=== PATIENT | male | born 1960 ===

== ENCOUNTER 2019-05-28 10:24 | Emergency (ER) | payer BC ==
[2019-05-28 10:38] VITALS: BP 153/107
--- NOTE | 2019-05-28 10:45 | UC ---
Knee Pain HPI - HPI Summary HPI Summary: 59 yo with onset of left knee pain and swelling 2 weeks ago when he jumped down about 2 feet, although he was holding onto rebar at the time to decrease the impact. He had onset of swelling within a day, and began using a knee brace for support. Yesterday, he knelt to clean out a chimney,and worked on his knees for a bit, with significant increase in pain and swelling following that. He has been using ice every 2 hours to the knee for relief of swelling. No history of gout. - History of Current Complaint Chief Complaint: UCLowerExtremity Stated Complaint: SWOLLEN KNEE Time Seen by Provider: 05/28/19 10:44 Hx Obtained From: Patient Onset/Duration: Gradual Onset, Lasting Weeks Pain Intensity: 4 Character: Aching, Stiffness Aggravating Factor(s): Movement, Weight Bearing, Prolonged Standing, Stairs Alleviating Factor(s): Rest, Cold Associated Signs And Symptoms: Positive: Negative - Allergies/Home Medications Allergies/Adverse Reactions: Allergies Allergy/AdvReac Type Severity Reaction Status Date / Time No Known Allergies Allergy Verified 05/28/19 10:38 Home Medications: Home Medications Concentrated Tumeric 1 tab PO DAILY 05/28/19 [History] Magnesium Oxide [Magnesium] 250 mg PO DAILY 05/28/19 [History Confirmed 05/28/19 ] Tumeric/Black Pepper 4 tab PO DAILY 05/28/19 [History Confirmed 05/28/19] Ubidecarenone [Co Q-10] 200 mg PO DAILY 05/28/19 [History Confirmed 05/28/19] Vitamin E(Dl-Alpha Tocopherol) [Alpha-Tocopherol] 1 liq XX DAILY 05/28/19 [ History Confirmed 05/28/19] PMH/Surg Hx/FS Hx/Imm Hx - Additional Past Medical History Additional PMH: diffuse arthritis Cardiovascular History: Cardiac Disease, Hypertension - Surgical History Surgical History: Yes Surgery Procedure, Year, and Place: T & A,open heart cabg - Family History Known Family History: Positive: Hypertension Negative: Cardiac Disease - Social History Occupation: Employed Full-time Lives: With Family Alcohol Use: Daily Alcohol Amount: 2 GLASSES OF WINE DAILY Substance Use Type: None Smoking Status (MU): Former Smoker Type: Pipe Have You Smoked in the Last Year: No Review of Systems All Other Systems Reviewed And Are Negative: Yes Constitutional: Positive: Negative Eyes: Positive: Negative ENT: Positive: Negative Cardiovascular: Positive: Other - hx of CAD with bypasses. He uses supplements for support, stopped meds for dyslipidemia several years ago. Genitourinary: Positive: Negative Motor: Positive: Other - treats arthritis in shoulders and elbows with tumeric and black pepper supplement. Psychological: Positive: Negative Is Patient Immunocompromised?: No Physical Exam Triage Information Reviewed: Yes Appearance: Well-Appearing, Pain Distress - moderate Vital Signs: Initial Vital Signs Temp 98.8 F 05/28/19 10:30 Pulse 90 05/28/19 10:30 Resp 20 05/28/19 10:30 BP 153/107 05/28/19 10:30 Pulse Ox 100 05/28/19 10:30 ENT: Positive: Normal ENT inspection Respiratory: Positive: Lungs clear, Normal breath sounds Cardiovascular Exam: Normal - blood pressure elevated. Musculoskeletal Exam: Other - left knee with large effusion, no erythema or warmth. Exam limited by amount of swelling and pain. Musculoskeletal: Positive: ROM Limited @ - left knee, flexion limited to about 20 degrees; lacks full extension. Neurological: Positive: Alert, Muscle Tone Normal Psychological Exam: Normal Skin Exam: Normal Diagnostics - Radiology No standard instances Radiology Interpretation Completed By: ED Physician Summary of Radiographic Findings: Large effusion, well preserved joint space Knee Pain Course/Dx - Course Course Of Treatment: Continue use of crutches and apply ice to the knee for 20 minutes every 3 hours. You can use aceteminophen 1000mg every 8 hours for relief of pain. Please call orthopedics tomorrow to arrange evaluation of your knee within the next 2 days. - Differential Dx/Diagnosis Differential Diagnosis/HQI/PQRI: Bursitis, Sprain, Strain Provider Diagnosis: Effusion of left knee joint Discharge ED - Sign-Out/Discharge Documenting (check all that apply): Patient Departure All imaging exams completed and their final reports reviewed: No - Discharge Plan Condition: Stable Disposition: HOME Patient Education Materials: Swollen Knee Joint (ED) Forms: *Work Release Referrals: Mason Ulloa MD [Primary Care Provider] - Nikolai Calle MD [Medical Doctor] - Additional Instructions: Continue use of ice to the left knee for 20 minutes every 3 hours while awake. Continue use of crutches and brace your knee as discussed. You can use acetaminophen 1000mg every 8 hours as needed for pain. Please call Dr. Gutierrez's office in the morning to arrange an evaluation. - Billing Disposition and Condition Condition: STABLE Disposition: Home
--- NOTE | 2019-05-28 12:46 | UC ---
- Progress Note Progress Note: Reviewed Dr. Mcdonald's reading of left knee xray: no acute changes, as per addendum to chart note from today. Course/Dx - Diagnoses Provider Diagnoses: Effusion of left knee joint Discharge ED - Sign-Out/Discharge Documenting (check all that apply): Patient Departure All imaging exams completed and their final reports reviewed: Yes - Discharge Plan Condition: Stable Disposition: HOME Patient Education Materials: Swollen Knee Joint (ED) Forms: *Work Release Referrals: Nikolai Calle MD [Medical Doctor] - Mason Ulloa MD [Primary Care Provider] - Additional Instructions: Continue use of ice to the left knee for 20 minutes every 3 hours while awake. Continue use of crutches and brace your knee as discussed. You can use acetaminophen 1000mg every 8 hours as needed for pain. Please call Dr. Gutierrez's office in the morning to arrange an evaluation. - Billing Disposition and Condition Condition: STABLE Disposition: Home
== END 2019-05-28 12:07 | disposition home or self-care (01) ==
LOC: UCEAST 10:24
DX: M25.462 Effusion, left knee (principal); M25.562 Pain in left knee; I10 Essential (primary) hypertension; Z87.891 Personal history of nicotine dependence
CPT/HCPCS: 99201; G0463